=== PATIENT | male | born 1960 | race Caucasian/White ===

== ENCOUNTER 2017-04-11 09:53 | Outpatient (RCR) | payer OTHER, SELFPAY ==
--- NOTE | 2017-04-18 07:47 | HP.PTEVAL_ITS ---
Patient's Visit Information SERENITY GRACIA is a 56 year old M referred to Physical Therapy by Zen JARAMILLO with a diagnosis of L PFS and quad weakness. Date of Evaluation: 04/11/17 Physical Therapist: Erik Herr - Visit Plan Frequency: 2x /Week Duration: 4 Weeks Plan: Pt. to work on quad/glute medius strengthening and IT band stretching on own for 2-3 weeks and is to follow up with PT if needed. - Subjective Subjective: Pt. is here today for his initial evaluation with diagnosis left PFS and weak quadriceps. Pt. is a pleasant 56 y.o. male who has a history of L menisectomy. Pt. reports recently having increased medial knee pain, but intermittently. Pt. is mostly concerned about his difference in quad girth. Pt. reports increased pain with: walking, stairs, squating. Decreased pain: ice rest. Pt. denies N/T and no mechanism of injury. Pt. reports occassional clicking in knee but no locking up. Pt. is active and would like to maintain his lifestyle, but recently his knee has been giving hip some difficulty. Pt. is hopeful to get some exercises to increase quad strength and reduce symptoms allowing him to continue with current lifestyle without limitations. - Pain R knee Pain Intensity (Out of 10): 0 Pain Intensity Range: 0, 4 - Objective POSTURE: Pt,. has normal knee positioning in stance, no vargus or varus positioning bilaterally. Pt. has equal wt. shift between bilateral LEs. Pt. has equal iliac crest heights and normal foot positioning. PALPATION: Pt. has mild tenderness at medial and lateral joint lines on either side of patella. Pt. has no quad or patellar tendon pain. NEUROLOGICAL: Pt. has normal sensation to light and sharp touch of bilateral LEs. Pt. has 2+ achilles and patellar DTR bilaterally. Pt. is able to rise on heels and toes without issues. ROM: L knee : 0-0-128deg. R knee 0-0-137deg. Pt. has normal hip PROM bilaterally. PT. has slight tightness in bilateral HS and hip flexors, but with in normal limits. + obers test on L sided for tigtness, no pain. MMT: RLE- ankle 5/5 throughout; knee- 5/5 throughout; hip- flexion 4+/5, abd 4/5, ext 4+/5. LLE- ankle 5/5 throuhgout; knee: ext 4+/5, flexion 4+/5; hip- flexion 4+/5, abd 4/5, ext 4+/5. Core strength- fair-. GAIT: Pt. ambulates with normal pattern, no hip rotation noted with normal rocker moments. STAIRS: Pt. is able to negotiate with reciprocal pattern with out HR. PT. does have slight functional weakness with eccentric lowering on L side. - Special Tests L Knee Caesar - Meniscus: Negative L Knee Apley - Meniscus: Negative L Knee Disco Test - Meniscus: Positive L Knee Ambar - ACL: Negative L Knee Posterior Drawer - PCL: Negative L Knee Valgus - MCL: Negative L Knee Varus - LCL: Negative L Knee Patellar Apprehension - PFS: Negative L Knee Patellar Grind - PFS: Positive - Goals Goal 1:: Pt. to be I with HEP. Goal Time Frame: 1 Week Goal 2:: Pt. to ambulate and negotiate steps without increase in symptoms. Goal Time Frame: 2-4 Weeks Goal 3:: Pt. to have increased LLE strength by 1/2 grade of all effected musculature decreasing stress applied to L knee with all functional mobility. Goal Time Frame: 4-6 Weeks - Rehabilitation Potential Physical Therapy Diagnosis: Pt. has signs and symptoms consistent with L knee pain most likely stemming from PFS and quad weakness. He has marked quad girth differences with L being smaller than R. He also had a + disco test for medial meniscal pain, but was inconclusive with rest of testing. Pt. would benefit from PT to increase quad strength and IT/glute med length allowing for proper patellar positioning with all functional mobility. Rehabilitation Potential: Excellent - Anticipated Interventions Thank you for the opportunity to evaluate your patient. For Medicare and Medicare HMO plans, please review the plan of care and approve it. It will need to be FAXED BACK to us at [phone] for Medicare purposes. Please let me know if there are questions or concerns regarding this plan of care. Physician Signature: Date:
--- NOTE | 2017-10-19 11:26 | HP.PT.NRP ---
HP - Discharge Summary (1) - Patient Information SERENITY GRACIA was seen in my office for initial evaluation on 04/11/17. The following Plan of Care was established for this patient: Initial Frequency: 2x /Week Initial Duration: 4 Weeks This patient was last seen in our office 04/11/17. Pertinent comments regarding their Physical therapy will appear below: Pt. was evaluated for his quad weakness and PFS. Pt. was given execises for strengthening in [place] and [facility]. Pt. reported good understanding and wanted to trial exercises on own at that point intime. Pt. has not been in PT for 5 months and will be DC from PT at this point in time. At this point I will be discontinuing this patient from physical therapy. I would be happy to see this patient again in the future if found appropriate by the physician. Thank you! Erik Herr
== END 2017-04-11 19:00 | disposition home or self-care (01) ==
LOC: PT 09:53
PROVIDERS: Family Provider Family Medicine; PCP Family Medicine; Visit Provider Family Medicine
DX: M22.2X2 Patellofemoral disorders, left knee (principal); M62.81 Muscle weakness (generalized)
CPT/HCPCS: 97110; 97161

== ENCOUNTER → 2018-02-02 09:26 | Outpatient (CLI) | payer OTHER, SELFPAY ==
[2015-12-09 05:18] VITALS: BMI 24.4
[2018-02-02 12:27] LABS: Cholesterol 268 mg/dL (200); High Density Lipoprotein 48 mg/dL; Triglycerides 153 mg/dL; Very Low Density Lipoprotein 31 mg/dL (5-40)
== END ==
PROVIDERS: Family Provider Family Medicine; PCP Family Medicine; Referring Provider Family Medicine; Visit Provider Family Medicine
DX: Z00.00 Encounter for general adult medical examination without abnormal findings (principal)
CPT/HCPCS: 36415; 80061

== ENCOUNTER 2018-03-22 10:00 | Outpatient (RCR) | payer OTHER, SELFPAY ==
--- NOTE | 2018-02-22 14:45 | HP.PTEVAL ---
Patient's Visit Information SERENITY GRACIA is a 57 year old M referred to Physical Therapy by Walter Ovalle MD with a diagnosis of Cervical Pain. 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 This episode has been several months- june since summer. 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 The pain comes and goes and feels very locked up. Does yoga and massage- swimming helps it but is temporary. Feels really tight across the CT junction. Radiates to the shoulder blades- no pain down the arm. Has tingling in the left arm sporadically but is unsure if its real. No pain that travels up the neck. No DELGADILLO, blurred vision or dizziness. Does feel left arm is mildly weaker than the right- left hand dominate but does throw with his right arm. Worst: 5/10 Agg: sitting at the computer all day, walking the dog a lot Eases: lap swimming, massage, chiropractor. Chiropractor- used a acctuator and did adjustment- maybe had one ultrasound. Walks the dog (5-7 miles a day), Yoga at [employer] (slow flow- 2-3x a week), swims laps- tries to lift gentle weights a few days a week. Very active. 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 PMHx: knee operation about 15 years ago. Meds: utastride - Objective Posture: FH, RS, increased kyphosis- can correct with verbal cues but does not maintain. Gait: no deviation noted in LE- good arm swing and trunk rotation but does have forward head. Palpation: tender along CT junction- upper traps and insertion of levator scapula bilaterally. ROM: UE: WFL, Cervical: flexion: WNL, Extn: WNL, SB: decreased by 50%, Rotation: decrased by 50%. Strength: Cervical: isometrics: 4+/5, Scapular: fair minus. Shoulder: 4+/5 throughout except left IR/ER: 4/5. 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 Goal Time Frame: 4-6 Weeks Goal 3:: Patient will report 0/10 pain for 1 week Goal Time Frame: 4-6 Weeks - Rehabilitation Potential Physical Therapy Diagnosis: Patient presents with hypomobility- he has decreased strength and muscular endurance leading to poor posture and increased pain with ADL's. - Anticipated Interventions Patient/Client Instruction: Educate patient on: Benefits of Fitness Program Therapeutic Exercise to Include: Strength training, Endurance training, Agility training, Body mechanics, Postural training, Flexibilty training, Scapular Strength/Stabilization For the Purpose of:: To improve muscle performance and motor function TENS: Yes Cryotherapy (ice pack, ice massage): Yes Thermo therapy (hot pack): Yes Ultrasound (thermal/non thermal): Yes Thank you for the opportunity to evaluate your patient. For Medicare and Medicare HMO plans, please review the plan of care and approve it. It will need to be FAXED BACK to us at [phone] for Medicare purposes. For Medicare only, by signing this I certify the plan of care. Please let me know if there are questions or concerns regarding this plan of care. Physician Signature: Date:
--- NOTE | 2018-03-22 10:42 | HP.PT.NRP ---
HP - Discharge Summary (1) - Patient Information SERENITY GRACIA was seen in my office for initial evaluation on 02/22/18. The following Plan of Care was established for this patient: Initial Frequency: 2x /Week Initial Duration: 4 Weeks - Anticipated Interventions Patient/Client Instruction: Educate patient on: Benefits of Fitness Program Therapeutic Exercise to Include: Strength training, Endurance training, Agility training, Body mechanics, Postural training, Flexibilty training, Scapular Strength/Stabilization For the Purpose of:: To improve muscle performance and motor function TENS: Yes Cryotherapy (ice pack, ice massage): Yes Thermo therapy (hot pack): Yes Ultrasound (thermal/non thermal): Yes This patient was last seen in our office . Pertinent comments regarding their Physical therapy will appear below: At this point I will be discontinuing this patient from physical therapy. I would be happy to see this patient again in the future if found appropriate by the physician. Thank you! Phoebe Martinez DPT
--- OUTSIDE RECORDS SUMMARY | 2018-04-29 05:28 | XMS RPT_ITS ---
:1960 Author Organization OHIP Care Team Providers Name Role Phone Zen Ovalle Attending Unavailable Zen Ovalle Referring Unavailable Zen Ovalle Primary Care Unavailable Zen Ovalle Attending Unavailable Zen Ovalle Referring Unavailable Zen Ovalle Primary Care Unavailable Zen Ovalle Attending Unavailable Zen Ovalle Referring Unavailable [facility] Unavailable PROBLEMS PROBLEMS DATE TYPE CONDITION / CODE ATTENDING STATUS SOURCE 02/02/2018 Unknown Z00.00 - Encounter Gage Ovalle for general adult [facility] without abnormal Repository findings / Z00.00(ICD-10) 10/19/2017 Unknown M22.2X2 - Gage Ovalle Patellofemoral [facility] disorders, left knee Hospital / M22.2X2(ICD-10) Repository PROCEDURES PROCEDURES No Procedure Records FoundRESULTS RESULTS INITAL EVALUATION (1) Observed: 02/22/2018 Status: F Source: [place] - PT 2:47 PM [facility] REPOSITORY [facility] [place] [address] / REHABILITATION SERVICES INITIAL EVALUATION MR#: [id number] Acct: [id number] Name: SERENITY GRACIA Rep #: [id number] : 1960 57 From: Phoebe Martinez DPT Referring Dr.: Zen Ovalle MD Status: REG RCR Insurance: [facility] SELF PAY INSURANCE Patient's Visit Information SERENITY GRACIA is a 57 year old M referred to Physical Therapy by Walter Ovalle MD with a diagnosis of Cervical Pain. 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 This episode has been several months- june since summer. 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 The pain comes and goes and feels very locked up. Does yoga and massage- swimming helps it but is temporary. Feels really tight across the CT junction. Radiates to the shoulder blades- no pain down the arm. Has tingling in the left arm sporadically but is unsure if its real. No pain that travels up the neck. No DELGADILLO, blurred vision or dizziness. Does feel left arm is mildly weaker than the right- left hand dominate but does throw with his right arm. Worst: 5/10 Agg: sitting at the computer all day, walking the dog a lot Eases: lap swimming, massage, chiropractor. Chiropractor- used a acctuator and did adjustment- maybe had one ultrasound. Walks the dog (5-7 miles a day), Yoga at [employer] (slow flow- 2-3x a week), swims laps- tries to lift gentle weights a few days a week. Very active. 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 PMHx: knee operation about 15 years ago. Meds: utastride - Objective Posture: FH, RS, increased kyphosis- can correct with verbal cues but does not maintain. Gait: no deviation noted in LE- good arm swing and trunk rotation but does have forward head. Palpation: tender along CT junction- upper traps and insertion of levator scapula bilaterally. ROM: UE: WFL, Cervical: flexion: WNL, Extn: WNL, SB: decreased by 50%, Rotation: decrased by 50%. Strength: Cervical: isometrics: 4+/5, Scapular: fair minus. Shoulder: 4+/5 throughout except left IR/ER: 4/5. Language Teacher: right: 95,90,95 left:110,100,105 - Goals Goal 1:: Patient will be I with HEP and progression Goal Time Frame: 4-6 Weeks Goal 2:: Patient will maintain proper posture t/o tx session to demo increased scap s/s. Goal Time Frame: 4-6 Weeks Goal 3:: Patient will report 0/10 pain for 1 week Goal Time Frame: 4-6 Weeks - Rehabilitation Potential Physical Therapy Diagnosis: Patient presents with hypomobility- he has decreased strength and muscular endurance leading to poor posture and increased pain with ADL's. - Anticipated Interventions Patient/Client Instruction: Educate patient on: Benefits of Fitness Program Therapeutic Exercise to Include: Strength training, Endurance training, Agility training, Body mechanics, Postural training, Flexibilty training, Scapular Strength/Stabilization For the Purpose of:: To improve muscle performance and motor function TENS: Yes Cryotherapy (ice pack, ice massage): Yes Thermo therapy (hot pack): Yes Ultrasound (thermal/non thermal): Yes Thank you for the opportunity to evaluate your patient. For Medicare and Medicare HMO plans, please review the plan of care and approve it. It will need to be FAXED BACK to us at [phone] for Medicare purposes. For Medicare only, by signing this I certify the plan of care. Please let me know if there are questions or concerns regarding this plan of care. Physician Signature: Date: <Electronically signed by Phoebe Martinez DPT> 02/22/18 1447 CC: Zen Ovalle MD ELR Signed LIPID PROFILE Collected: 02/02/2018 Status: F Source: [place] 9:30 AM [facility] REPOSITORY TYPE CODE TESTS RESULT OUT OF RANGE REFERENCE UNITS LAB L501.4900 200 mg/dL High CHOL 268 Result Comment: <200 mg/dL Desirable 200-240 mg/dL Borderline >240 mg/dL High Risk LAB L501.5000 mg/dL Normal TRIG 153 Result Comment: The drugs N-Acetylcysteine and Metamizole may falsely depress this assay. Serum Triglycerides Reference Interval Normal <150 mg/dL Borderline high 150 - 199 mg/dL High 200 - 499 mg/dL Very High > or = 500 mg/dL LAB L501.6400 mg/dL Normal HDL 48 Result Comment: The drugs N-Acetylcysteine and Metamizole may falsely depress this assay. Reference Range HDL <40 mg/dL Low HDL Cholesterol HDL >or= 60 mg/dL High HDL Cholesterol LAB L501.6500 0-130 mg/dL High LDL 189 LAB L501.6600 5-40 mg/dL Normal VLDL 31 Performed By: #### L500.4100 #### [facility] [address] [place], [address] INITAL EVALUATION (1) Observed: 04/18/2017 Status: F Source: [place] - PT 7:47 AM [facility] REPOSITORY [facility] [address] [place] [address] Fax REHABILITATION SERVICES INITIAL EVALUATION MR#: [id number] Acct: [id number] Name: SERENITY GRACIA Rep #: [id number] : 1960 56 From: Erik Herr DPT Referring Dr.: Zen Ovalle MD Status: REG RCR Insurance: [facility] SELF PAY INSURANCE Patient's Visit Information SERENITY GRACIA is a 56 year old M referred to Physical Therapy by Zen JARAMILLO with a diagnosis of L PFS and quad weakness. Date of Evaluation: 04/11/17 Physical Therapist: Erik Herr - Visit Plan Frequency: 2x /Week Duration: 4 Weeks Plan: Pt. to work on quad/glute medius strengthening and IT band stretching on own for 2-3 weeks and is to follow up with PT if needed. - Subjective Subjective: Pt. is here today for his initial evaluation with diagnosis left PFS and weak quadriceps. Pt. is a pleasant 56 y.o. male who has a history of L menisectomy. Pt. reports recently having increased medial knee pain, but intermittently. Pt. is mostly concerned about his difference in quad girth. Pt. reports increased pain with: walking, stairs, squating. Decreased pain: ice rest. Pt. denies N/T and no mechanism of injury. Pt. reports occassional clicking in knee but no locking up. Pt. is active and would like to maintain his lifestyle, but recently his knee has been giving hip some difficulty. Pt. is hopeful to get some exercises to increase quad strength and reduce symptoms allowing him to continue with current lifestyle without limitations. - Pain R knee Pain Intensity (Out of 10): 0 Pain Intensity Range: 0, 4 - Objective POSTURE: Pt,. has normal knee positioning in stance, no vargus or varus positioning bilaterally. Pt. has equal wt. shift between bilateral LEs. Pt. has equal iliac crest heights and normal foot positioning. PALPATION: Pt. has mild tenderness at medial and lateral joint lines on either side of patella. Pt. has no quad or patellar tendon pain. NEUROLOGICAL: Pt. has normal sensation to light and sharp touch of bilateral LEs. Pt. has 2+ achilles and patellar DTR bilaterally. Pt. is able to rise on heels and toes without issues. ROM: L knee: 0-0-128deg. R knee 0-0-137deg. Pt. has normal hip PROM bilaterally. PT. has slight tightness in bilateral HS and hip flexors, but with in normal limits. + obers test on L sided for tigtness, no pain. MMT: RLE- ankle 5/5 throughout; knee- 5/5 throughout; hip- flexion 4+/5, abd 4/5, ext 4+/5. LLE- ankle 5/5 throuhgout; knee: ext 4+/5, flexion 4+/5; hip- flexion 4+/5, abd 4/5, ext 4+/5. Core strength- fair-. GAIT: Pt. ambulates with normal pattern, no hip rotation noted with normal rocker moments. STAIRS: Pt. is able to negotiate with reciprocal pattern with out HR. PT. does have slight functional weakness with eccentric lowering on L side. - Special Tests L Knee Caesar - Meniscus: Negative L Knee Apley - Meniscus: Negative L Knee Disco Test - Meniscus: Positive L Knee Ambar - ACL: Negative L Knee Posterior Drawer - PCL: Negative L Knee Valgus - MCL: Negative L Knee Varus - LCL: Negative L Knee Patellar Apprehension - PFS: Negative L Knee Patellar Grind - PFS: Positive - Goals Goal 1:: Pt. to be I with HEP. Goal Time Frame: 1 Week Goal 2:: Pt. to ambulate and negotiate steps without increase in symptoms. Goal Time Frame: 2-4 Weeks Goal 3:: Pt. to have increased LLE strength by 1/2 grade of all effected musculature decreasing stress applied to L knee with all functional mobility. Goal Time Frame: 4-6 Weeks - Rehabilitation Potential Physical Therapy Diagnosis: Pt. has signs and symptoms consistent with L knee pain most likely stemming from PFS and quad weakness. He has marked quad girth differences with L being smaller than R. He also had a + disco test for medial meniscal pain, but was inconclusive with rest of testing. Pt. would benefit from PT to increase quad strength and IT/glute med length allowing for proper patellar positioning with all functional mobility. Rehabilitation Potential: Excellent - Anticipated Interventions Thank you for the opportunity to evaluate your patient. For Medicare and Medicare HMO plans, please review the plan of care and approve it. It will need to be FAXED BACK to us at [phone] for Medicare purposes. Please let me know if there are questions or concerns regarding this plan of care. Physician Signature: Date: <Electronically signed by Erik Herr DPT> 04/18/17 0747 CC: Zen Ovalle MD CLS Signed For Medicare only, by signing this I certify the plan of care. Physicians Signature Date ALLERGIES ALLERGIES DATE TYPE / CODE NAME / CODE REACTION SEVERITY SOURCE 10/07/2014 Drug No Known Unknown [place] [facility] Allergy/4160 Allergies/F00 Hospital 79489(SNOMED [id number](RXNOR Repository CT) M) ENCOUNTERS ENCOUNTERS ADMIT/DISCHARGE ACCOUNT ADMITTING ENCOUNTER LOCATION SOURCE NUMBER CLASS 03/01/2018 [id number] Amb[place] [facility] ing:PT Repository 02/02/2018 [id number] Ambulatory [place] [facility] ing:MTLAB Repository 04/11/2017/ [id number] Ambulatory [place] [facility] ing:PT Repository PAYERS PAYERS ENCOUNTER GUARANTOR PAYER SUBSCRIBER SOURCE 03/01/2018 SERENITY Rivera Primary DEIRDRE A [place] [id number] [place] Insurance[place] [facility] [id number] [address]Tbe: (330) Number: Repository [phone] () [id number] Date:1427-78-40VM [address] [place], [place] [id number]: 03/01/2018 Secondary NOT GIVENUNK [place] Insurance:SELF PAY [facility] Number: Effective Repository Date:2018-02-15 02/02/2018 SERENITY Rivera Primary DEIRDRE A [place] [id number] [place] Insurance:MEDICAL FORDDOB: [facility] [id number] [address]Xbl: (330) Number: Repository [phone] () [id number] Date:7778-00-12KZ [address] [place] [address]WQ: 02/02/2018 Secondary NOT GIVENUNK [place] Insurance:SELF PAY [facility] Number: Effective Repository Date:2018-02-02 04/11/2017 SERENITY Rivera Primary DEIRDRE FORDDOB: [place] [id number] [place] Insurance:MEDICAL [id number] [address]Zcv: 330) Number: Repository [phone] ) [id number] Date:2845-76-34WC [address] [address]SH: 04/11/2017 Secondary NOT GIVENUNK [place] Insurance:SELF PAY [facility] Number: Effective Repository Date:2017-04-04
== END 2018-03-22 19:00 | disposition home or self-care (01) ==
LOC: PT 10:00
PROVIDERS: Family Provider Family Medicine; PCP Family Medicine; Referring Provider Family Medicine; Visit Provider Family Medicine
DX: M50.90 Cervical disc disorder, unspecified, unspecified cervical region (principal)
CPT/HCPCS: 97110; 97161; 97164

== ENCOUNTER → 2018-04-10 15:54 | Outpatient (CLI) | payer OTHER, SELFPAY ==
[2015-12-09 05:18] VITALS: BMI 24.4
[2018-04-10 18:13] LABS: PSA,Total - Annual Screen 6.48 ng/mL (0.00-4.00)
== END ==
PROVIDERS: Family Provider Family Medicine; PCP Family Medicine; Referring Provider Urology; Visit Provider Urology
DX: Z12.5 Encounter for screening for malignant neoplasm of prostate (principal)
CPT/HCPCS: 36415; 84153; G0103

== ENCOUNTER → 2018-04-17 09:32 | Outpatient (CLI) | payer OTHER, SELFPAY ==
[2015-12-09 05:18] VITALS: BMI 24.4
[2018-04-17 10:42] LABS: PSA,Total- Diagnostic 7.11 ng/mL (0.0-4.0)
== END ==
PROVIDERS: Family Provider Family Medicine; PCP Family Medicine; Referring Provider Nurse Practitioner Adult Health; Visit Provider Nurse Practitioner Adult Health
DX: R97.20 Elevated prostate specific antigen [PSA] (principal)
CPT/HCPCS: 36415; 84153

== ENCOUNTER → 2018-05-15 | Outpatient (CLI) | payer OTHER, SELFPAY ==
[2015-12-09 05:18] VITALS: BMI 24.4
--- NOTE | 2018-05-15 08:00 | PROSBIL_PTH ---
PATIENT: SERENITY GRACIA LOC: [facility] U#:[id number] AGE/SX: 58/M ROOM: RE05/15/[address]: Dr. rCuzito Jaime MD : 1960 BED: DIS: 05/15/2018 SPEC #: [id number] RECD: 05/15/18 16:35 STATUS: KIAH RENeva #: [id number] MIGUELINA: 05/15/18 08:[address]: Cruzito Jaime DEPT: SURGICAL PATHOLOGY RECD BY: Florentin Chauhan ENTERED: 05/16/18 10:54 SP TYPE: PROST BX JOSE ROBERTO DR: Dr. Zen Ovalle MD Tissues: A - PROSTATE RIGHT B - PROSTATE RIGHT C - PROSTATE RIGHT D - PROSTATE LEFT E - PROSTATE LEFT F - PROSTATE LEFT Procedures: PROSTATE BX HEADER OPERATION: Prostate biopsy PRE-OP DIAGNOSIS: Elevated prostate TISSUE SUBMITTED: A - Right apex, B - Right mid, C - Right base, D - Left apex, E - Left mid, F - Left base MICROSCOPIC DIAGNOSIS A. Right prostate, apex, core biopsy: Focal glandular atrophy. Mild chronic inflammation and focal acute inflammation. B. Right prostate, mid, core biopsy: Focal glandular atrophy and mild chronic inflammation. C. Right prostate, base, core biopsy: Glandular atrophy and mild chronic inflammation. D. Left prostate, apex, core biopsy: Focal glandular atrophy and mild chronic inflammation. E. Left prostate, mid, core biopsy: Focal glandular atrophy and mild chronic inflammation. F. Left prostate, base, core biopsy: Focal glandular atrophy. Focal acute inflammation. AM:georgie 05/17/18 MICROSCOPIC DESCRIPTION Slides are reviewed. GROSS DESCRIPTION A - Received is one container designated prostate, right apex. The specimen consists of two elongated fragments of light yañez-white soft tissue each measuring 1.5 cm in length and 0.1 cm in diameter. The specimen is totally submitted in one cassette. B - Received is one container designated prostate, right mid. The specimen consists of two elongated fragments of light yañez-white soft tissue measuring 1.5 and 1.9 cm in length and 0.1 cm in diameter. The specimen is totally submitted in one cassette. C - Received is one container designated prostate, right base. The specimen consists of two elongated fragments of light yañez-white soft tissue each measuring 1.5 cm in length and 0.1 cm in diameter. The specimen is totally submitted in one cassette. D - Received is one container designated prostate, left apex. The specimen consists of two elongated fragments of light yañez-white soft tissue measuring 1 and 1.5 cm in length and 0.1 cm in diameter. The specimen is totally submitted in one cassette. E - Received is one container designated prostate, left mid. The specimen consists of two elongated fragments of light yañez-white soft tissue measuring 0.8 and 1.5 cm in length and 0.1 cm in diameter. The specimen is totally submitted in one cassette. F - Received is one container designated prostate, left base. The specimen consists of two elongated fragments of light yañez-white soft tissue each measuring 1.5 cm in length and 0.1 cm in diameter. The specimen is totally submitted in one cassette. / SJ:rg 05/16/18 TC:2 CPT: 93912 x6
== END | disposition home or self-care (01) ==
LOC: LABSPEC 16:43
PROVIDERS: Family Provider Family Medicine; PCP Family Medicine; Referring Provider Urology; Visit Provider Urology
DX: R97.20 Elevated prostate specific antigen [PSA] (principal)
CPT/HCPCS: 88305; G0416

== ENCOUNTER → 2019-01-02 08:47 | Outpatient (CLI) | payer OTHER, SELFPAY ==
[2015-12-09 05:18] VITALS: BMI 24.4
[2019-01-02 09:59] LABS: PSA,Total- Diagnostic 5.11 ng/mL (0.0-4.0)
== END ==
PROVIDERS: Family Provider Family Medicine; PCP Family Medicine; Referring Provider Urology; Visit Provider Urology
DX: R97.20 Elevated prostate specific antigen [PSA] (principal)
CPT/HCPCS: 36415; 84153

== ENCOUNTER → 2020-01-07 14:47 | Outpatient (CLI) | payer OTHER, SELFPAY ==
[2015-12-09 05:18] VITALS: BMI 24.4
== END ==
PROVIDERS: PCP Family Medicine; Visit Provider Urology
DX: R97.20 Elevated prostate specific antigen [PSA] (principal)
CPT/HCPCS: 36415; 84153

== ENCOUNTER → 2020-05-13 09:04 | Outpatient (CLI) | payer OTHER, SELFPAY ==
[2020-05-13 11:55] LABS: Anion Gap 6 (5-15); BUN 15 mg/dL (7-18); BUN/Creat Ratio 17.1 RATIO (10-20); Chloride 106 mmol/L (98-107); Cholesterol 267 mg/dL (200); Creatinine, Serum 0.88 mg/dL (0.70-1.30); EST Glomerular Filtration Rate 95 mL/min (>60); Est Glom Filt Rate - Afr Amer 114 mL/min (>60); Glucose 88 mg/dL (74-106); High Density Lipoprotein 48 mg/dL; Potassium 3.9 mmol/L (3.5-5.1); Sodium Level 138 mmol/L (136-145); Triglycerides 166 mg/dL; Very Low Density Lipoprotein 33 mg/dL (5-40)
== END ==
PROVIDERS: PCP Family Medicine; Referring Provider Family Medicine; Visit Provider Urology
DX: E78.00 Pure hypercholesterolemia, unspecified (principal); Z13.1 Encounter for screening for diabetes mellitus; R97.20 Elevated prostate specific antigen [PSA]
CPT/HCPCS: 36415; 80048; 80061; 84153

== ENCOUNTER → 2020-06-12 11:01 | Outpatient (CLI) | payer OTHER, SELFPAY ==
--- NOTE | 2020-06-12 11:30 | MRI_ITS ---
MR Pelvis WO/W Contrast 06/12/2020 11:42 AM COMPARISON: None CLINICAL HISTORY: 60 yo M with elevated PSA. Most recent PSA = Not provided TECHNIQUE: Standard prostate MRI technique was utilized with a multiplanar 1.5 Dolores magnet without endorectal coil. FINDINGS: Prostate volume: 75 cc PSA density: PSA level not provided. Length of membranous urethra: 12 mm Post-biopsy hemorrhage: None Multiparametric MR evaluation: Heterogeneous appearance of the central gland is consistent with benign prostatic hyperplasia. Lesion 1: LOCATION - 1.2 x 0.7 x 0.7 cm in the mid to base left transitional zone (image 13 series 5). T2 - PI-RADS 4 - lenticular, homogeneous, moderately hypointense DWI - PI-RADS 3 - Mildly hypointense on ADC and mildly hyperintense on DWI DCE - Indeterminate Overall PI-RADS v2 score = PI-RADS 4 Capsular margin and neurovascular bundle: Normal Seminal vesicles: Normal Lymph nodes: No lymphadenopathy in the field of view. Bones: No suspicious lesions in the field of view. MRI/Pelvis W/WO Contrast IMPRESSION: 1.2 cm PI-RADS 4 lesion in the mid to base left TZ. No lymphadenopathy. No suspicious bone lesions. Electronically Signed: Zen Andino MD at 17:08 EDT Tel , Service support ,
== END ==
PROVIDERS: PCP Family Medicine; Referring Provider Urology; Visit Provider Urology
DX: R97.20 Elevated prostate specific antigen [PSA] (principal)
CPT/HCPCS: 72197; A9575

== ENCOUNTER → 2020-06-16 | Outpatient (CLI) | payer OTHER, SELFPAY ==
[2015-12-09 05:18] VITALS: BMI 24.4
--- NOTE | 2020-06-16 | IMM_PTH ---
PATIENT: SERENITY GRACIA LOC: [facility] U#:[id number] AGE/SX: 60/M ROOM: RE06/16/[address]: Dr. Cruzito Jaime MD : 1960 BED: DIS: 06/16/2020 SPEC #: [id number] RECD: 06/18/20 11:47 STATUS: KIAH REQ #: [id number] MIGUELINA: 06/16/20 00:[address]: Cruzito Jaime DEPT: IMMUNOHISTOCHEMISTRY RECD BY: Kimberly Parnell ENTERED: 06/18/20 11:49 SP TYPE: IMMUNO OTHR DR: Dr. Zen Ovalle MD Tissues: D - PROSTATE LEFT Procedures: P40 (add) 34BE12 (initial) PHYSICIAN & INSTITUTION [place] [id number] SPECIMEN INFORMATION: Tissue Source: D - Left prostate, apex, core biopsy Clinical Info: Elevated PSA Specimen Number: [id number] CPT code: 78830, 55840 METHODOLOGY: Deparaffinized sections of prefer/formalin-fixed tissue or PAP/DQ stained slides are incubated with monoclonal/polyclonal antibodies/oligonucleotide probes. Localization is made via biotin free immunoperoxidase method. Appropriate controls are performed and reacted as expected. Results on target cell population are indicated in the following table: RESULTS: ANTIBODY / CLONE RESULT Block D P40 (BC28) negative 34BE12 (34BE12) negative These tests were developed and their performance characteristics determined by [facility]. They may not have been cleared or approved by the U.[place]. Food and Drug Administration. The FDA has determined that such clearance or approval is not necessary. The above immunohistochemical/dualISH markers are ordered and reviewed by the Pathologist. INTERPRETATION: Luis Left prostate, apex, core biopsy: Adenocarcinoma. SANTIAGO:georgie 06/19/2020
--- NOTE | 2020-06-16 14:15 | PROSBIL_PTH ---
PATIENT: SERENITY GRACIA LOC: [facility] U#:[id number] AGE/SX: 60/M ROOM: RE06/16/[address]: Dr. Cruzito Jaime MD : 1960 BED: DIS: 06/16/2020 SPEC #: [id number] RECD: 06/17/20 11:36 STATUS: KIAH REQ #: [id number] MIGUELINA: 06/16/20 14:[address]: Cruzito Jaime DEPT: SURGICAL PATHOLOGY RECD BY: Snehal Carmona ENTERED: 06/17/20 11:37 SP TYPE: PROST BX JOSE ROBERTO DR: Dr. Zen Ovalle MD Tissues: A - PROSTATE RIGHT B - PROSTATE RIGHT C - PROSTATE RIGHT D - PROSTATE LEFT E - PROSTATE LEFT F - PROSTATE LEFT Procedures: PROSTATE BX HEADER OPERATION: Prostate biopsy PRE-OP DIAGNOSIS: Elevated PSA TISSUE SUBMITTED: A - Right apex, B - Right mid, C - Right base, D - Left apex, E - Left mid, F - Left base MICROSCOPIC DIAGNOSIS A. Right prostate, apex, core biopsy: Prostatic tissue, negative for malignancy. Focal mild basal cell hyperplasia and chronic inflammation. B. Right prostate, mid, core biopsy: Prostatic tissue, negative for malignancy. Focal mild chronic inflammation and minimal acute inflammation. C. Right prostate, base, core biopsy: Prostatic tissue, negative for malignancy. D. Left prostate, apex, core biopsy: Prostatic adenocarcinoma. [place] grade: 3+3=6 Number of cores involved: 1/2 Proportion of tissue involved: ~5% Perineural invasion: Not identified. Greatest tumor length: 0.2 cm See comment. E. Left prostate, mid, core biopsy: Prostatic tissue, negative for malignancy. Focal mild chronic inflammation. F. Left prostate, base, core biopsy: Prostatic tissue, negative for malignancy. SJ:rg 06/18/2020 COMMENT D. Immunohistochemistry ([id number]) supports the above diagnosis. MICROSCOPIC DESCRIPTION Slides are reviewed. GROSS DESCRIPTION A - Received is one container designated prostate, right apex. The specimen consists of two elongated fragments of light yañez-white soft tissue measuring 0.7 and 1.3 cm in length and 0.1 cm in diameter. The specimen is totally submitted in one cassette. B - Received is one container designated prostate, right mid. The specimen consists of two elongated fragments of light yañez-white soft tissue measuring 1 and 1.2 cm in length and 0.1 cm in diameter. The specimen is totally submitted in one cassette. C - Received is one container designated prostate, right base. The specimen consists of two elongated fragments of light yañez-white soft tissue each measuring 1.5 cm in length and 0.1 cm in diameter. The specimen is totally submitted in one cassette. D - Received is one container designated prostate, left apex. The specimen consists of two elongated fragments of light yañez-white soft tissue each measuring 1.6 cm in length and 0.1 cm in diameter. The specimen is totally submitted in one cassette. E - Received is one container designated prostate, left mid. The specimen consists of two elongated fragments of light yañez-white soft tissue measuring 1.5 and 2 cm in length and 0.1 cm in diameter. The specimen is totally submitted in one cassette. F - Received is one container designated prostate, left base. The specimen consists of two elongated fragments of light yañez-white soft tissue each measuring 1.4 cm in length and 0.1 cm in diameter. The specimen is totally submitted in one cassette. / SJ:rg 06/17/20 TC:0 CPT: 60821 x6 ADDENDUM ADDENDUM ADDENDUM ADDENDUM ADDENDUM ADDENDUM ADDENDUM ADDENDUM ADDENDUM ADDENDUM ADDENDUM ADDENDUM ADDENDUM ADDENDUM ADDENDUM 09/21/2020 10:14 ADDENDUM 05/25/2021 15:31 ADDENDUM 09/21/2020 10:14 ADDENDUM 09/21/2020 10:14 ADDENDUM 09/21/2020 10:14 ADDENDUM 09/21/2020 10:14 This addendum is added to incorporate an outside pathology consultation report. The case was examined at [facility] (#[id number]) and the following diagnosis was rendered. A. Right prostate, apex, core biopsy: Benign prostatic tissue. B. Right prostate, mid, core biopsy: Benign prostatic tissue. C. Right prostate, base, core biopsy: Benign prostatic tissue. D. Left prostate, apex, core biopsy: Prostatic adenocarcinoma, [place] score 3+3=6 (grade group 1), involving 10% of 1/2 cores (1 mm tumor length). E. Left prostate, mid, core biopsy: Benign prostatic tissue. F. Left prostate, base, core biopsy: Benign prostatic tissue. Please see complete above mentioned consultation report in EMR An order for Oncotype testing was received from Dr. Jaime. This necessitated case review, block and slide selection by pathologist at [facility]. Genomic Prostate Score = 47 Results of the complete Oncotype testing ([employer] report) are viewable in EMR under: Reports - Pathology - Lab Pathology Report, Scanned.
== END | disposition home or self-care (01) ==
LOC: LABSPEC 16:24
PROVIDERS: PCP Family Medicine; Referring Provider Urology; Visit Provider Urology
DX: R97.20 Elevated prostate specific antigen [PSA] (principal)
CPT/HCPCS: 88305; 88341; 88342; G0416

== ENCOUNTER → 2021-07-30 | Outpatient (CLI) | payer BC, SELFPAY ==
[2021-07-30 10:09] LABS: Cholesterol 235 mg/dL (200); High Density Lipoprotein 48 mg/dL; Triglycerides 117 mg/dL; Very Low Density Lipoprotein 23 mg/dL (5-40)
[2021-07-30 10:18] LABS: PSA,Total- Diagnostic < 0.01 ng/mL (0.0-4.0)
== END | disposition home or self-care (01) ==
PROVIDERS: PCP Family Medicine; Referring Provider Family Medicine; Visit Provider Family Medicine
DX: C61 Malignant neoplasm of prostate (principal); E78.00 Pure hypercholesterolemia, unspecified
CPT/HCPCS: 36415; 80061; 84153

== ENCOUNTER → 2022-03-16 | Outpatient (CLI) | payer BC, SELFPAY ==
[2022-03-16 10:51] LABS: PSA,Total - Annual Screen < 0.01 ng/mL (0.00-4.00)
[2022-03-16 14:46] LABS: PSA,Total- Diagnostic < 0.01 ng/mL (0.0-4.0)
== END | disposition home or self-care (01) ==
PROVIDERS: PCP Family Medicine
DX: C61 Malignant neoplasm of prostate (principal)
CPT/HCPCS: 36415; 84153; G0103

== ENCOUNTER → 2022-03-22 | Outpatient (CLI) | payer BC, SELFPAY ==
--- NOTE | 2022-03-22 10:20 | RAD_ITS ---
STUDY: X-RAY - LEFT KNEE REASON FOR EXAM: Male, 61 years old. PAIN TECHNIQUE: 4 view(s) of the knee. COMPARISON: Comparison is made with prior study 11/15/2012. FINDINGS: Normal visualized distal femur. Normal visualized proximal tibia and fibula. Normal proximal tibiofibular articulation. There is severe degenerative arthrosis of the medial femorotibial compartment with severe joint space narrowing. Normal lateral femorotibial compartment. Normal patellofemoral articulation. Small joint effusion. RAD/Knee 4 or More Views IMPRESSION: Degenerative arthrosis. Small joint effusion. Electronically Signed: Gamaliel Durbin MD at 15:31 EST ,
== END | disposition home or self-care (01) ==
LOC: MTRAD 10:18
PROVIDERS: PCP Family Medicine; Referring Provider Family Medicine; Visit Provider Family Medicine
DX: M25.562 Pain in left knee (principal)
CPT/HCPCS: 73564

== ENCOUNTER → 2022-10-18 | Outpatient (CLI) | payer BC, SELFPAY ==
[2022-10-18 10:47] LABS: Anion Gap 4 (5-15); BUN 14 mg/dL (7-18); BUN/Creat Ratio 17.9 RATIO (10-20); Calcium,Total 8.9 mg/dL (8.5-10.1); Chloride 109 mmol/L (98-107); Cholesterol 270 mg/dL (200); Creatinine, Serum 0.78 mg/dL (0.70-1.30); EST Glomerular Filtration Rate 107 mL/min (>60); Est Glom Filt Rate - Afr Amer 129 mL/min (>60); Glucose 92 mg/dL (74-106); High Density Lipoprotein 45 mg/dL; Potassium 3.8 mmol/L (3.5-5.1); Sodium Level 140 mmol/L (136-145); Triglycerides 181 mg/dL; Very Low Density Lipoprotein 36 mg/dL (5-40)
== END | disposition home or self-care (01) ==
LOC: MFPLAB 09:23
PROVIDERS: PCP Family Medicine; Visit Provider Family Medicine
DX: E78.00 Pure hypercholesterolemia, unspecified (principal); Z13.1 Encounter for screening for diabetes mellitus
CPT/HCPCS: 36415; 80048; 80061

== ENCOUNTER → 2023-08-09 | Outpatient (CLI) | payer BC, SELFPAY ==
[2023-08-12 11:08] LABS: Lyme Scn Total Ab w/Rflx Negative (Negative)
== END | disposition home or self-care (01) ==
LOC: MFPLAB 12:04
PROVIDERS: PCP Family Medicine; Visit Provider Family Medicine
DX: R53.83 Other fatigue (principal); W57.XXXA Bitten or stung by nonvenomous insect and other nonvenomous arthropods, initial encounter
CPT/HCPCS: 36415; 86618

== ENCOUNTER 2024-05-08 09:06 | Outpatient (CLI) | payer BC, SELFPAY ==
[2024-05-08 16:58] LABS: Cholesterol 274 mg/dL (<=200); High Density Lipoprotein 45 mg/dL; Low Density Lipoprotein Calc. 194 mg/dL; Triglycerides 174 mg/dL; Very Low Density Lipoprotein 35 mg/dL (5-40); cholesterol:hdl ratio screen 6.09
== END 2024-05-08 23:59 | disposition home or self-care (01) ==
LOC: MFPLAB 09:07
PROVIDERS: PCP Family Medicine; Referring Provider Family Medicine; Visit Provider Family Medicine
DX: E78.00 Pure hypercholesterolemia, unspecified (principal)
CPT/HCPCS: 36415; 80061

== ENCOUNTER 2024-05-15 07:08 | Outpatient (CLI) | payer BC, SELFPAY ==
--- NOTE | 2024-05-15 07:11 | CT_ITS ---
PROCEDURE: LIMITED CHEST CT CARDIAC ONLY REASON FOR EXAM: HYPERCHOLESTEREMIA TECHNIQUE: Prone and supine chest CT without contrast. One or more dose reduction techniques were used (e.g., Automated exposure control, adjustment of the mA and/or kV according to patient size, use of iterative reconstruction technique). COMPARISON: None FINDINGS: Hardware: None Lymph nodes: Small benign-appearing mediastinal lymph nodes. Heart and Vasculature: Normal heart size. No pericardial effusion. Coronary Artery Calcifications: Absent Lungs and Airways: The lungs are normally expanded and clear. No septal thickening nodules or abnormal pulmonary opacities. Pleura: Unremarkable Upper Abdomen: Unremarkable Bones: Degenerative changes of the thoracic spine. CT/Limited Chest CT Cardiac Only IMPRESSION: Coronary artery calcification (CAC) is is absent Reading Location: [place] [address]
--- NOTE | 2024-05-15 14:48 | CA.SCORE ---
Calcium Scoring Date of Study:: 05/15/24 Indications Indications: HCol Coronary Calcium Scoring: High-resolution Computed Tomographic imaging of the chest was performed on [05/15/24 ], with particular attention paid to the coronary arteries. Images from the examination were analyzed for the presence and extent of coronary artery calcification , using coronary calcium quantification software. The patient tolerated the procedure well and there were no complications. The results of the coronary calcification analysis are provided below. Findings Coronary Artery Left Main (LM): 0 Left Anterior Descending (LAD): 0 Left Circumflex (LCX): 0 Right Coronary Artery (RCA): 0 Total Agatston Score: 0 Percentile Rankin Calcium Scoring Interpretation: Different methods to categorize the overall amount of coronary plaque. Overall amount CAC SIS Visual of coronary plaque P1 Mild -100 <2 1-2 vessels with mild amount of plaque P2 Moderate 101-300 3-4 1-2 vessels with moderate amount, 3 vessels with mild amount of plaque P3 Severe 301-999 5-7 3 vessels with moderate amount, 1 vessel with severe amount of plaque P4 Extensive >1000 >8 2-3 vessels with severe amount of plaque Conclusion: No atherosclerotic plaque
== END 2024-05-15 23:59 | disposition home or self-care (01) ==
LOC: CT 07:10
PROVIDERS: PCP Family Medicine; Referring Provider Family Medicine; Visit Provider Family Medicine
DX: E78.00 Pure hypercholesterolemia, unspecified (principal)
CPT/HCPCS: 75571; 76380